=== PATIENT | female | born 1960 | race Caucasian/White ===

== ENCOUNTER 2017-02-04 11:52 | Emergency (ER) | payer BC ==
[~2017-02-04] VITALS: Ht 160 cm; Wt 52.2 kg
[2017-02-04] MEDS ORDERED: ESOMEPRAZOLE 40 MG PO (12:11)
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
--- NOTE | 2017-02-04 12:48 | NUR ---
TRIPLE ABX OINTMENT PLACED THEN REMOVED BECAUSE PATIENT WANTED THE DERMABOND APPLIED. DERMABOND APPLIED AFTER CLEANING OFF THE OINTMENT.
--- NOTE | 2017-02-04 13:00 | NUR ---
DC AND FOLLOW UP INSTRUCTIONS GIVEN AND EXPLAINED TO PATIENT WHO STATES SHE UNDERSTANDS ALL INSTRUCTIONS.
== END 2017-02-04 13:07 | disposition home or self-care (01) ==
LOC: ER 11:52
DX: S61.412A Laceration without foreign body of left hand, initial encounter (principal); K21.9 Gastro-esophageal reflux disease without esophagitis; W26.0XXA Contact with knife, initial encounter; Y93.89 Activity, other specified; Y92.9 Unspecified place or not applicable; Y99.9 Unspecified external cause status
CPT/HCPCS: 12001; 90471; 90715; 99283; A4663

== ENCOUNTER 2017-02-06 18:09 | Emergency (ER) | payer BC ==
[~2017-02-06] VITALS: Ht 3 cm; Wt 52.2 kg
[~2017-02-06 18:09] MED LIST: ESOMEPRAZOLE 40 MG PO
--- NOTE | 2017-02-06 18:42 | NUR ---
PT.WAS PLACED IN THE BED,AWAITING FOR TO BE SEEN.
--- NOTE | 2017-02-06 19:04 | NUR ---
Patient discharged to home in stable conditon. Written and verbal after care instructions given. Patient verbalizes understanding of instructions. WALKED OUT OF ER WITH STEADY GAIT NO DISTRESS NOTED
== END 2017-02-06 19:12 | disposition home or self-care (01) ==
LOC: ER 18:10
DX: S61.412D Laceration without foreign body of left hand, subsequent encounter (principal); K21.9 Gastro-esophageal reflux disease without esophagitis; X58.XXXD Exposure to other specified factors, subsequent encounter
CPT/HCPCS: 99281; A4663